=== PATIENT | female | born 1990 | race Caucasian/White ===

== ENCOUNTER 2016-09-11 03:13 | Inpatient (IN) | payer BC ==
--- NOTE | ~2016-09-11 | IDS ---
Interim Discharge Summary [facility] [address] [place]. [address] NAME: ANDIE SOTOMAYOR : 88 STATUS : ADM IN [facility]#: [id number] AGE: 26 ADM/REG DATE : 09/11/16 MR#: [id number] REPORT SERV DATE: 09/16/16 DICTATED BY: CLAUDIA MOREL DATE: 09/15/16 REPORT STATUS : Draft TRANSCRIBED BY: MODSanta DATE: 09/15/16 ADMISSION DATE: 09/11/2016 DISCHARGE DATE: DIAGNOSES: 1. Right hip cellulitis/abscess, status post I and D on 09/13/2016. 2. Right forearm cellulitis. 3. Hypoxia secondary to atelectasis and volume overload. 4. Urinary tract infection. 5. Hypertension. HOSPITAL COURSE: The patient was admitted for management of right hip cellulitis. Initially, she was placed on vancomycin and Rocephin. Clinical status does not improve with that regimen. Rocephin eventually changed to Zosyn. MRI was done for further evaluation. An abscess was noticed. General Surgery was consulted. The patient had I and D on 09/13/2016. Follow up cultures for the escalation of antibiotics. Consider consulting ID if needed. The patient developed some hypoxia. CTA of the chest was done to rule out PE. CTA did not show any evidence of PE on evaluation. Showed atelectasis and pulmonary vascular congestion. IV fluids were discontinued. The patient was given Lasix cautiously because of soft blood pressure and started on incentive spirometry. We have continued to hold hydrochlorothiazide due to soft BP. Further management per clinical course. MOUNIKA/ALONZO Chong Boyd MD / [id number] CC: MD Henry Babcock III, M.D.
--- NOTE | ~2016-09-11 | DS ---
Discharge Summary [facility] [address] [facility] [place]. [address] NAME: ANDIE TERRY : 88 STATUS : DIS IN PAT#: [id number] AGE: 26 ADM/REG DATE : 09/11/16 MR#: [id number] REPORT SERV DATE: 09/21/16 DICTATED BY: SHABANA CHATTERJEE DATE: 09/21/16 REPORT STATUS : Draft TRANSCRIBED BY: MODSanta DATE: 09/21/16 ADMISSION DATE: 09/11/2016 DISCHARGE DATE: 09/20/2016 The patient was admitted to the Hospitalist Service. CONSULTANTS: Dr. Ayaz Estrada. Dr. Feliberto Jaramillo, General Surgery. DISCHARGE DIAGNOSES: 1. Right hip abscess. 2. Right arm cellulitis. 3. Acute kidney injury. 4. Urinary tract infection. 5. Cutaneous jude. 6. Depression. 7. Chronic kidney stones. This discharge diagnosis covers dates 09/16/2016 through 09/20/2016. For complete history and hospital course up to 09/16/2016, please see Dr. Boyd' interim discharge summary. HISTORY OF PRESENT ILLNESS: I initially saw Ms. Terry on 09/16/2016 for the first time. She complained of right forearm pain and swelling as well as right hip pain, not controlled currently with her p.r.n. hydrocodone dose. She denied any chest pain or shortness of breath. She reported intermittent tend to nausea, none when I evaluated her as she was eating breakfast. Her vital signs were stable, and she was in no acute distress. I noticed some cutaneous jude in the folds of her groin and upper thighs, as well as her abdominal folds. Nystatin powder was ordered. I also increased her Percocet to 7.5/325 mg dose. In addition, venous duplex of the right arm was ordered to rule out DVT. Venous duplex was done on the same day, and this revealed a superficial venous thrombosis of the right basilic vein. Warm compresses and elevation of the right arm were ordered. Later in the day on the , her culture of her right hip abscess came back showing MSSA. Therefore, her vancomycin and Zosyn were discontinued by Dr. Kothari, and she was placed on Ancef 1 g IV daily 8. On the following day, pharmacy per PNP protocol changed to Ancef to 2 g IV q.8 hours. On the , Ms. Terry had a slight bump in her white count to 13.6. On the , she had increased erythema in her right forearm and hand, this was worsening, her Ancef was changed back to IV vancomycin. Her HCTZ was resumed for her chronic kidney stones. Her cutaneous jude was improving with the nystatin topical. In addition, her right hip pain was improved and the wound was without any drainage. On 09/19/2016, Ms. Terry was feeling better. Her right arm erythema and edema had decreased with changing back to the vancomycin IV. She did state that she was passing tiny kidney stones on this date as well as the evening before. However, her white count was slowly creeping up to 15.5. I did speak with Dr. Estrada on this date, and he recommended Zyvox 600 mg p.o. b.i.d. for five days at discharge. On 09/20/2016, Ms. Terry continued to improve. The nursing staff instructed her on her wound care with dressing changes to the right hip wound. Her white count had increased slightly from the day before to 15.7 from 15.3, however, she was Discharge Summary [address] [address] NAME: ANDIE TERRY : 88 STATUS : DIS IN [facility]#: [id number] AGE: 26 ADM/REG DATE : 09/11/16 MR#: [id number] REPORT SERV DATE: 09/21/16 DICTATED BY: SHABANA CHATTERJEE DATE: 09/21/16 REPORT STATUS : Draft TRANSCRIBED BY: ALONZO DATE: 09/21/16 afebrile and overall continuing to improve. She was very adamant about being discharged secondary to issues with early childhood associate for her 2-year-old and 6-year-old. I did have Ms. Terry immobilize her right wrist and hand in Velcro splint. Her vital signs were stable. Her pain was managed with her oral pain medicine. She had received treatment for her urinary tract infection that was present on admission. She had no more urinary tract symptoms other than passing of tiny kidney stones which she does very frequently. Therefore, it was felt that we had completed necessary inpatient treatment for Ms. Terry and she could be discharged home safely on continued oral antibiotic and wound care with close followup schedule. So, on the evening of 09/20/2016, she was discharged home in stable condition. DISCHARGE INSTRUCTIONS: Include: 1. Diet: As tolerated. 2. Activity: As tolerated with the right hand splint x1 week. She will be followed by [facility] nurses for dressing changes every other day to the right hip wound with Aquacel Ag packing covered with Mepilex foam. DISCHARGE MEDICATIONS: As follows: 1. Gabapentin 100 mg t.i.d. 2. Requip 0.5 mg p.o. at bedtime. 3. Phenergan 12.5 mg p.o. q.4 hours p.r.n. nausea, #20, prescription given. 4. Percocet 7.5/325 p.o. q.4-6 hours p.r.n., #20, prescription given. 5. Zyvox 600 mg p.o. b.i.d. for five days, prescription given. Ms. Terry did receive her first dose of Zyvox 600 mg p.o. in the hospital prior to discharge. She is instructed to hold her Zoloft while taking the Zyvox prescription. OTHER DISCHARGE INSTRUCTIONS: Include, she will have followup lab work drawn on Friday at [facility] outpatient lab, CBC, BMP, and Mag level. [facility]. Also, she is scheduled to follow up with [facility], on 10/07/2016 as a new patient. BRENT/ALONZO Jainya Chatterjee [facility] / [id number] CC: Myra Ayers III, M.D. Kenneth A Bell, D.O.
--- NOTE | ~2016-09-11 | OP ---
Record Of Operation [facility] [address] [place]. [address] NAME: ANDIE SOTOMAYOR : 88 STATUS : ADM IN [facility]#: [id number] AGE: 26 ADM/REG DATE : 09/11/16 MR#: [id number] REPORT SERV DATE: 09/13/16 DICTATED BY: JOHN GILBERT JR. DATE: 09/13/16 REPORT STATUS : Draft TRANSCRIBED BY: ALONZO DATE: 09/13/16 DATE OF PROCEDURE: 09/13/2016 SURGEON: John Gilbert M.D. PROCEDURE: Incision and drainage of right hip abscess. PREOPERATIVE DIAGNOSIS: Right hip abscess. POSTOPERATIVE DIAGNOSIS: Right hip abscess. ANESTHESIA: Local. INDICATIONS: The patient presented with cellulitis and abscess of the right hip. Incision and drainage is indicated. DESCRIPTION OF PROCEDURE: The area was prepped with Hibiclens. It was infiltrated with 1% lidocaine. With 11 blade, and incision was made overlying the area of fluctuance, entered the cavity, it was entered deeply and towards the medial aspect. The depth was 3 cm and 6 cm tracking medially. It was irrigated thoroughly with saline. Cultures were taken prior and was packed with Aquacel Ag, covered with foam and pressure dressing. She tolerated relatively well. ESTIMATED BLOOD LOSS: 10 mL. FERDINAND/ALONZO John Gilbert Jr., M.D. / [id number] CC: MD Henry Babcock III, M.D.
[~2016-09-11 03:13] MED LIST: ADVIL PO; BACTRIM DS1 TAB PO; BEN25 PO; CIP5 PO; DETROLLA4 PO; HYDROCHLOROT50 MG PO; LORTAB 5 PO; NAP500 PO; NEUR100 PO; PR12.5 PO; PR25 PO; PYR200 PO; REQUIP5 PO; SPRINTEC 2828 DAY PO; ULTRAM50 PO; ZOL100 PO; ZOL50 PO; [UNRECOGNIZED DRUG - OTHER] PO
[2016-09-11 05:39] LABS: BASOPHILS 0.3 %; BASOPHILS ABSOLUTE 0.03 10/3/uL (0.0-0.16); EOSINOPHILS 1.7 %; EOSINOPHILS ABSOLUTE 0.19 10/3/uL (0.0-0.53); HEMATOCRIT 37.7 % (36.0-48.0); HEMOGLOBIN 12.6 g/dL (12.0-16.0); IMMATURE GRANULOCYTES 0.5 %; IMMATURE GRANULOCYTES ABSOLUTE 0.06 10/3/uL (0.0-0.11); LYMPHOCYTES 19.6 %; LYMPHOCYTES ABSOLUTE 2.16 10/3/uL (0.67-4.30); MEAN CORPUS HGB CONC 33.4 g/dL (32.0-36.0); MEAN CORPUSCULAR HEMOGLOB 29.9 pg (26.0-34.0); MEAN CORPUSCULAR VOLUME 89.5 fL (80-100); MEAN PLATELET VOLUME 9.4 fL (9.2-13.0); MONOCYTES 7.7 %; MONOCYTES ABSOLUTE 0.85 10/3/uL (0.21-1.20); NEUTROPHILS 70.2 %; NEUTROPHILS ABSOLUTE 7.74 10/3/uL (2.02-8.40); PLATELET COUNT 301 10/3/uL (150-400); RBC DISTRIBUTION WIDTH 13.5 % (12.0-16.0); RED CELL COUNT 4.21 10/6/uL (4.0-5.6)
[2016-09-11 05:41] LABS: MANUAL DIFF NO %
[2016-09-11 05:56] LABS: BUN (BLOOD UREA NITROGEN) 8 MG/DL (6-23); CALCIUM, SERUM 8.5 MG/DL (8.5-10.4); CHLORIDE, SERUM 104 MMOL/L (96-112); CO2 (CARBON DIOXIDE) 24 MMOL/L (24-34); CREATININE 0.79 MG/DL (0.55-1.02); GFR AFRICAN AMERICAN 119 ML/MIN (>=60); GFR NON AFRICAN AMERICAN 103 ML/MIN (>=60); SODIUM, SERUM 139 MMOL/L (135-148)
[2016-09-11 05:57] LABS: GLUCOSE, SERUM 105 MG/DL (60-99); POTASSIUM, SERUM 2.9 MMOL/L (3.5-5.3)
[2016-09-12 04:41] LABS: BASOPHILS 0.2 %; BASOPHILS ABSOLUTE 0.02 10/3/uL (0.0-0.16); EOSINOPHILS 0.3 %; EOSINOPHILS ABSOLUTE 0.04 10/3/uL (0.0-0.53); HEMATOCRIT 37.9 % (36.0-48.0); HEMOGLOBIN 12.8 g/dL (12.0-16.0); IMMATURE GRANULOCYTES 0.6 %; IMMATURE GRANULOCYTES ABSOLUTE 0.07 10/3/uL (0.0-0.11); LYMPHOCYTES 14.4 %; LYMPHOCYTES ABSOLUTE 1.73 10/3/uL (0.67-4.30); MANUAL DIFF NO %; MEAN CORPUS HGB CONC 33.8 g/dL (32.0-36.0); MEAN CORPUSCULAR HEMOGLOB 30.3 pg (26.0-34.0); MEAN CORPUSCULAR VOLUME 89.6 fL (80-100); MEAN PLATELET VOLUME 9.5 fL (9.2-13.0); MONOCYTES 9.3 %; MONOCYTES ABSOLUTE 1.12 10/3/uL (0.21-1.20); NEUTROPHILS 75.2 %; NEUTROPHILS ABSOLUTE 9.06 10/3/uL (2.02-8.40); PLATELET COUNT 250 10/3/uL (150-400); RBC DISTRIBUTION WIDTH 13.4 % (12.0-16.0); RED CELL COUNT 4.23 10/6/uL (4.0-5.6)
[2016-09-12 04:54] LABS: BUN (BLOOD UREA NITROGEN) 6 MG/DL (6-23); CALCIUM, SERUM 8.4 MG/DL (8.5-10.4); CHLORIDE, SERUM 104 MMOL/L (96-112); CO2 (CARBON DIOXIDE) 23 MMOL/L (24-34); CREATININE 0.71 MG/DL (0.55-1.02); GFR AFRICAN AMERICAN 135 ML/MIN (>=60); GFR NON AFRICAN AMERICAN 117 ML/MIN (>=60); GLUCOSE, SERUM 112 MG/DL (60-99); POTASSIUM, SERUM 3.1 MMOL/L (3.5-5.3); SODIUM, SERUM 138 MMOL/L (135-148)
[2016-09-13 05:52] LABS: BUN (BLOOD UREA NITROGEN) 5 MG/DL (6-23); CALCIUM, SERUM 8.7 MG/DL (8.5-10.4); CHLORIDE, SERUM 104 MMOL/L (96-112); CO2 (CARBON DIOXIDE) 24 MMOL/L (24-34); CREATININE 0.58 MG/DL (0.55-1.02); GFR AFRICAN AMERICAN 146 ML/MIN (>=60); GFR NON AFRICAN AMERICAN 126 ML/MIN (>=60); GLUCOSE, SERUM 120 MG/DL (60-99); POTASSIUM, SERUM 3.6 MMOL/L (3.5-5.3); SODIUM, SERUM 139 MMOL/L (135-148)
[2016-09-13 06:05] LABS: BASOPHILS 0.2 %; BASOPHILS ABSOLUTE 0.03 10/3/uL (0.0-0.16); EOSINOPHILS 1.4 %; EOSINOPHILS ABSOLUTE 0.23 10/3/uL (0.0-0.53); HEMATOCRIT 36.5 % (36.0-48.0); HEMOGLOBIN 12.3 g/dL (12.0-16.0); IMMATURE GRANULOCYTES 0.4 %; IMMATURE GRANULOCYTES ABSOLUTE 0.07 10/3/uL (0.0-0.11); LYMPHOCYTES 15.3 %; LYMPHOCYTES ABSOLUTE 2.44 10/3/uL (0.67-4.30); MEAN CORPUS HGB CONC 33.7 g/dL (32.0-36.0); MEAN CORPUSCULAR HEMOGLOB 29.7 pg (26.0-34.0); MEAN CORPUSCULAR VOLUME 88.2 fL (80-100); MEAN PLATELET VOLUME 9.5 fL (9.2-13.0); MONOCYTES 10.2 %; MONOCYTES ABSOLUTE 1.63 10/3/uL (0.21-1.20); NEUTROPHILS 72.5 %; NEUTROPHILS ABSOLUTE 11.55 10/3/uL (2.02-8.40); PLATELET COUNT 229 10/3/uL (150-400); RBC DISTRIBUTION WIDTH 13.4 % (12.0-16.0); RED CELL COUNT 4.14 10/6/uL (4.0-5.6)
[2016-09-13 06:14] LABS: MANUAL DIFF NO %
[2016-09-14 05:45] LABS: BUN (BLOOD UREA NITROGEN) 7 MG/DL (6-23); CALCIUM, SERUM 8.4 MG/DL (8.5-10.4); CHLORIDE, SERUM 110 MMOL/L (96-112); CO2 (CARBON DIOXIDE) 23 MMOL/L (24-34); CREATININE 0.85 MG/DL (0.55-1.02); GFR AFRICAN AMERICAN 109 ML/MIN (>=60); GFR NON AFRICAN AMERICAN 94 ML/MIN (>=60); GLUCOSE, SERUM 136 MG/DL (60-99); POTASSIUM, SERUM 3.7 MMOL/L (3.5-5.3); SODIUM, SERUM 140 MMOL/L (135-148)
[2016-09-14 06:06] LABS: BASOPHILS 0.4 %; BASOPHILS ABSOLUTE 0.05 10/3/uL (0.0-0.16); EOSINOPHILS 3.6 %; EOSINOPHILS ABSOLUTE 0.47 10/3/uL (0.0-0.53); HEMATOCRIT 35.1 % (36.0-48.0); HEMOGLOBIN 11.7 g/dL (12.0-16.0); IMMATURE GRANULOCYTES 0.8 %; LYMPHOCYTES 20.5 %; LYMPHOCYTES ABSOLUTE 2.71 10/3/uL (0.67-4.30); MANUAL DIFF NO %; MEAN CORPUS HGB CONC 33.3 g/dL (32.0-36.0); MEAN CORPUSCULAR HEMOGLOB 29.7 pg (26.0-34.0); MEAN CORPUSCULAR VOLUME 89.1 fL (80-100); MEAN PLATELET VOLUME 10.1 fL (9.2-13.0); MONOCYTES 7.4 %; MONOCYTES ABSOLUTE 0.98 10/3/uL (0.21-1.20); NEUTROPHILS 67.3 %; PLATELET COUNT 218 10/3/uL (150-400); RBC DISTRIBUTION WIDTH 13.5 % (12.0-16.0); RED CELL COUNT 3.94 10/6/uL (4.0-5.6); WHITE BLOOD CELLS 13.2 10/3/uL (4.5-10.5)
[2016-09-15 12:55] LABS: BASOPHILS 0.5 %; BASOPHILS ABSOLUTE 0.05 10/3/uL (0.0-0.16); EOSINOPHILS 4.8 %; EOSINOPHILS ABSOLUTE 0.47 10/3/uL (0.0-0.53); HEMATOCRIT 34.2 % (36.0-48.0); HEMOGLOBIN 11.3 g/dL (12.0-16.0); IMMATURE GRANULOCYTES 1.6 %; IMMATURE GRANULOCYTES ABSOLUTE 0.16 10/3/uL (0.0-0.11); LYMPHOCYTES 35.9 %; LYMPHOCYTES ABSOLUTE 3.49 10/3/uL (0.67-4.30); MEAN CORPUSCULAR HEMOGLOB 30.1 pg (26.0-34.0); MEAN PLATELET VOLUME 9.6 fL (9.2-13.0); MONOCYTES 9.9 %; MONOCYTES ABSOLUTE 0.96 10/3/uL (0.21-1.20); NEUTROPHILS 47.3 %; NEUTROPHILS ABSOLUTE 4.58 10/3/uL (2.02-8.40); PLATELET COUNT 234 10/3/uL (150-400); RBC DISTRIBUTION WIDTH 13.9 % (12.0-16.0); RED CELL COUNT 3.76 10/6/uL (4.0-5.6); WHITE BLOOD CELLS 9.7 10/3/uL (4.5-10.5)
[2016-09-15 12:56] LABS: MANUAL DIFF NO %
[2016-09-15 13:08] LABS: BUN (BLOOD UREA NITROGEN) 10 MG/DL (6-23); CALCIUM, SERUM 7.9 MG/DL (8.5-10.4); CHLORIDE, SERUM 110 MMOL/L (96-112); CO2 (CARBON DIOXIDE) 26 MMOL/L (24-34); CREATININE 0.82 MG/DL (0.55-1.02); GFR AFRICAN AMERICAN 114 ML/MIN (>=60); GFR NON AFRICAN AMERICAN 98 ML/MIN (>=60); SODIUM, SERUM 144 MMOL/L (135-148)
[2016-09-15 13:09] LABS: GLUCOSE, SERUM 84 MG/DL (60-99)
[2016-09-16 10:34] LABS: BASOPHILS 0.6 %; BASOPHILS ABSOLUTE 0.06 10/3/uL (0.0-0.16); EOSINOPHILS 3.6 %; EOSINOPHILS ABSOLUTE 0.38 10/3/uL (0.0-0.53); HEMATOCRIT 36.2 % (36.0-48.0); HEMOGLOBIN 11.5 g/dL (12.0-16.0); IMMATURE GRANULOCYTES 0.6 %; IMMATURE GRANULOCYTES ABSOLUTE 0.06 10/3/uL (0.0-0.11); LYMPHOCYTES 30.8 %; MEAN CORPUS HGB CONC 31.8 g/dL (32.0-36.0); MEAN CORPUSCULAR HEMOGLOB 28.7 pg (26.0-34.0); MEAN CORPUSCULAR VOLUME 90.3 fL (80-100); MEAN PLATELET VOLUME 9.5 fL (9.2-13.0); MONOCYTES 5.7 %; MONOCYTES ABSOLUTE 0.61 10/3/uL (0.21-1.20); NEUTROPHILS 58.7 %; NEUTROPHILS ABSOLUTE 6.29 10/3/uL (2.02-8.40); PLATELET COUNT 267 10/3/uL (150-400); RBC DISTRIBUTION WIDTH 13.9 % (12.0-16.0); RED CELL COUNT 4.01 10/6/uL (4.0-5.6); WHITE BLOOD CELLS 10.7 10/3/uL (4.5-10.5)
[2016-09-16 10:39] LABS: MANUAL DIFF NO %
[2016-09-16 11:20] LABS: BUN (BLOOD UREA NITROGEN) 8 MG/DL (6-23); CALCIUM, SERUM 8.8 MG/DL (8.5-10.4); CHLORIDE, SERUM 111 MMOL/L (96-112); CO2 (CARBON DIOXIDE) 24 MMOL/L (24-34); CREATININE 0.89 MG/DL (0.55-1.02); GFR AFRICAN AMERICAN 103 ML/MIN (>=60); GFR NON AFRICAN AMERICAN 89 ML/MIN (>=60); GLUCOSE, SERUM 78 MG/DL (60-99); POTASSIUM, SERUM 4.2 MMOL/L (3.5-5.3); SODIUM, SERUM 144 MMOL/L (135-148); VANCOMYCIN TROUGH 25.2 MCG/ML (10.0-20.0)
[2016-09-17 05:15] LABS: BASOPHILS 0.4 %; BASOPHILS ABSOLUTE 0.05 10/3/uL (0.0-0.16); EOSINOPHILS 5.1 %; EOSINOPHILS ABSOLUTE 0.69 10/3/uL (0.0-0.53); HEMATOCRIT 37.4 % (36.0-48.0); HEMOGLOBIN 12.5 g/dL (12.0-16.0); IMMATURE GRANULOCYTES 1.7 %; IMMATURE GRANULOCYTES ABSOLUTE 0.23 10/3/uL (0.0-0.11); LYMPHOCYTES 17.3 %; LYMPHOCYTES ABSOLUTE 2.35 10/3/uL (0.67-4.30); MEAN CORPUSCULAR HEMOGLOB 29.9 pg (26.0-34.0); MEAN CORPUSCULAR VOLUME 89.5 fL (80-100); MEAN PLATELET VOLUME 9.6 fL (9.2-13.0); MONOCYTES 4.1 %; MONOCYTES ABSOLUTE 0.55 10/3/uL (0.21-1.20); NEUTROPHILS 71.4 %; NEUTROPHILS ABSOLUTE 9.69 10/3/uL (2.02-8.40); PLATELET COUNT 282 10/3/uL (150-400); RBC DISTRIBUTION WIDTH 13.7 % (12.0-16.0); RED CELL COUNT 4.18 10/6/uL (4.0-5.6); WHITE BLOOD CELLS 13.6 10/3/uL (4.5-10.5)
[2016-09-17 05:16] LABS: MANUAL DIFF NO %; MEAN CORPUS HGB CONC 33.4 g/dL (32.0-36.0)
[2016-09-17 05:27] LABS: BUN (BLOOD UREA NITROGEN) 6 MG/DL (6-23); CALCIUM, SERUM 8.9 MG/DL (8.5-10.4); CHLORIDE, SERUM 108 MMOL/L (96-112); CO2 (CARBON DIOXIDE) 22 MMOL/L (24-34); CREATININE 0.93 MG/DL (0.55-1.02); GFR AFRICAN AMERICAN 98 ML/MIN (>=60); GFR NON AFRICAN AMERICAN 84 ML/MIN (>=60); POTASSIUM, SERUM 3.9 MMOL/L (3.5-5.3); SODIUM, SERUM 142 MMOL/L (135-148)
[2016-09-17 05:29] LABS: GLUCOSE, SERUM 134 MG/DL (60-99)
[2016-09-18 08:01] LABS: BASOPHILS 0.2 %; BASOPHILS ABSOLUTE 0.03 10/3/uL (0.0-0.16); EOSINOPHILS 4.1 %; EOSINOPHILS ABSOLUTE 0.63 10/3/uL (0.0-0.53); HEMATOCRIT 38.6 % (36.0-48.0); HEMOGLOBIN 12.8 g/dL (12.0-16.0); IMMATURE GRANULOCYTES 1.9 %; IMMATURE GRANULOCYTES ABSOLUTE 0.29 10/3/uL (0.0-0.11); LYMPHOCYTES 22.4 %; LYMPHOCYTES ABSOLUTE 3.48 10/3/uL (0.67-4.30); MEAN CORPUS HGB CONC 33.2 g/dL (32.0-36.0); MEAN CORPUSCULAR HEMOGLOB 29.5 pg (26.0-34.0); MEAN CORPUSCULAR VOLUME 88.9 fL (80-100); MEAN PLATELET VOLUME 9.7 fL (9.2-13.0); MONOCYTES 6.1 %; MONOCYTES ABSOLUTE 0.94 10/3/uL (0.21-1.20); NEUTROPHILS 65.3 %; NEUTROPHILS ABSOLUTE 10.14 10/3/uL (2.02-8.40); PLATELET COUNT 304 10/3/uL (150-400); RED CELL COUNT 4.34 10/6/uL (4.0-5.6); WHITE BLOOD CELLS 15.5 10/3/uL (4.5-10.5)
[2016-09-18 08:03] LABS: MANUAL DIFF NO %
[2016-09-18 08:18] LABS: BUN (BLOOD UREA NITROGEN) 8 MG/DL (6-23); CALCIUM, SERUM 8.9 MG/DL (8.5-10.4); CHLORIDE, SERUM 109 MMOL/L (96-112); CO2 (CARBON DIOXIDE) 20 MMOL/L (24-34); CREATININE 0.91 MG/DL (0.55-1.02); GFR AFRICAN AMERICAN 100 ML/MIN (>=60); GFR NON AFRICAN AMERICAN 86 ML/MIN (>=60); GLUCOSE, SERUM 128 MG/DL (60-99); POTASSIUM, SERUM 4.4 MMOL/L (3.5-5.3); SODIUM, SERUM 142 MMOL/L (135-148)
[2016-09-19 07:22] LABS: HEMATOCRIT 41.7 % (36.0-48.0); HEMOGLOBIN 13.8 g/dL (12.0-16.0); MEAN CORPUS HGB CONC 33.1 g/dL (32.0-36.0); MEAN CORPUSCULAR HEMOGLOB 29.6 pg (26.0-34.0); MEAN CORPUSCULAR VOLUME 89.3 fL (80-100); MEAN PLATELET VOLUME 9.7 fL (9.2-13.0); PLATELET COUNT 327 10/3/uL (150-400); RBC DISTRIBUTION WIDTH 14.3 % (12.0-16.0); RED CELL COUNT 4.67 10/6/uL (4.0-5.6); WHITE BLOOD CELLS 15.3 10/3/uL (4.5-10.5)
[2016-09-19 07:23] LABS: MANUAL DIFF YES %
[2016-09-19 07:49] LABS: CALCIUM, SERUM 9.5 MG/DL (8.5-10.4); CHLORIDE, SERUM 110 MMOL/L (96-112); CO2 (CARBON DIOXIDE) 16 MMOL/L (24-34); CREATININE 1.11 MG/DL (0.55-1.02); GFR AFRICAN AMERICAN 79 ML/MIN (>=60); GFR NON AFRICAN AMERICAN 68 ML/MIN (>=60); SODIUM, SERUM 141 MMOL/L (135-148)
[2016-09-19 08:04] LABS: BUN (BLOOD UREA NITROGEN) 14 MG/DL (6-23); GLUCOSE, SERUM 93 MG/DL (60-99); POTASSIUM, SERUM 4.8 MMOL/L (3.5-5.3)
[2016-09-19 08:10] LABS: BAND NEUTROPHILS 4 %; LYMPHOCYTES 21 %; LYMPHOCYTES ABSOLUTE (CALC) 3.21 10/3/uL (0.67-4.30); MONOCYTES 6 %; MONOCYTES ABSOLUTE (CALC) 0.92 10/3/uL (0.21-1.20); NEUTROPHILS ABSOLUTE (CALC) 11.17 10/3/uL (2.02-8.40); PLATELET ESTIMATE ADQ (ADEQUATE); RBC MORPHOLOGY NORM (NORMAL); SEGMENTED NEUTROPHIL (0) 69 %; TOTAL NUCLEATED CELLS 100
[2016-09-19 10:16] LABS: PROCALCITONIN 0.26 ng/mL (<0.5)
[2016-09-20 07:45] LABS: BUN (BLOOD UREA NITROGEN) 18 MG/DL (6-23); CALCIUM, SERUM 9.6 MG/DL (8.5-10.4); CHLORIDE, SERUM 107 MMOL/L (96-112); CO2 (CARBON DIOXIDE) 19 MMOL/L (24-34); CREATININE 1.16 MG/DL (0.55-1.02); GFR AFRICAN AMERICAN 75 ML/MIN (>=60); GFR NON AFRICAN AMERICAN 64 ML/MIN (>=60); GLUCOSE, SERUM 90 MG/DL (60-99); POTASSIUM, SERUM 4.8 MMOL/L (3.5-5.3); SODIUM, SERUM 139 MMOL/L (135-148)
[2016-09-20 10:21] LABS: BASOPHILS 0.3 %; BASOPHILS ABSOLUTE 0.05 10/3/uL (0.0-0.16); EOSINOPHILS 3.1 %; EOSINOPHILS ABSOLUTE 0.48 10/3/uL (0.0-0.53); IMMATURE GRANULOCYTES 1.8 %; IMMATURE GRANULOCYTES ABSOLUTE 0.29 10/3/uL (0.0-0.11); LYMPHOCYTES 21.9 %; LYMPHOCYTES ABSOLUTE 3.44 10/3/uL (0.67-4.30); MEAN CORPUS HGB CONC 33.3 g/dL (32.0-36.0); MEAN CORPUSCULAR HEMOGLOB 29.8 pg (26.0-34.0); MEAN CORPUSCULAR VOLUME 89.4 fL (80-100); MEAN PLATELET VOLUME 9.4 fL (9.2-13.0); MONOCYTES 8.2 %; MONOCYTES ABSOLUTE 1.29 10/3/uL (0.21-1.20); NEUTROPHILS 64.7 %; NEUTROPHILS ABSOLUTE 10.15 10/3/uL (2.02-8.40); PLATELET COUNT 389 10/3/uL (150-400); RBC DISTRIBUTION WIDTH 14.5 % (12.0-16.0); RED CELL COUNT 4.36 10/6/uL (4.0-5.6); WHITE BLOOD CELLS 15.7 10/3/uL (4.5-10.5)
[2016-09-20 10:22] LABS: MANUAL DIFF NO %
[2016-09-20] MEDS ORDERED: ZYVOXPO PO (17:52)
[2016-10-02] MEDS ORDERED: ZOL100 PO (21:15)
[2016-10-02] MEDS ORDERED: XARELTO STARTER PACK (21:15)
[2016-10-02] MEDS ORDERED: REQUIP5 PO (21:16)
[2016-10-02] MEDS ORDERED: NEUR100 PO (21:16)
[2016-10-02] MEDS ORDERED: PR12.5 PO (21:16)
[2016-10-02] MEDS ORDERED: DURICEF PO (21:18)
[2016-10-02] MEDS ORDERED: PERCOCET 7.5/321 TAB PO (21:19)
[2016-10-02] MEDS ORDERED: BEN25 PO (21:19)
[2016-10-02] MEDS ORDERED: NYSTATPOW TOP (21:19)
[2016-10-05] MEDS ORDERED: PERCOCET 10/3251 TAB (09:39)
== END 2016-09-20 18:58 | disposition home or self-care (01) | DRG 602 ==
LOC: CDU1 03:13 → CDU2 03:16 → 4SO 09-14 08:01
PROVIDERS: Internal Medicine; Nurse Practitioner
PROC: 0H9HXZZ Drainage of Right Upper Leg Skin, External Approach (ICD-10-PCS; principal; 2016-09-13)
DX: L02.415 Cutaneous abscess of right lower limb (principal); J96.01 Acute respiratory failure with hypoxia; B37.89 Other sites of candidiasis; I82.611 Acute embolism and thrombosis of superficial veins of right upper extremity; L03.113 Cellulitis of right upper limb; N39.0 Urinary tract infection, site not specified; J98.11 Atelectasis; E87.70 Fluid overload, unspecified; L03.115 Cellulitis of right lower limb; R11.2 Nausea with vomiting, unspecified; B95.61 Methicillin susceptible Staphylococcus aureus infection as the cause of diseases classified elsewhere; N20.0 Calculus of kidney; F32.9 Major depressive disorder, single episode, unspecified; E87.6 Hypokalemia; E83.42 Hypomagnesemia; B96.4 Proteus (mirabilis) (morganii) as the cause of diseases classified elsewhere
CPT/HCPCS: 71275; 73722-RT; 80048; 80202; 82962; 83735; 84132; 84145; 85025; 87015; 87070; 87075; 87077; 87102; 87116; 87186; 87205; 87206; 93971; A9270-GY; A9577; J0690; J1170; J2543; J2550; J3370

== ENCOUNTER 2016-09-23 23:50 | Inpatient (IN) | payer BC ==
--- NOTE | ~2016-09-23 | HP ---
History And Physical [facility] [address] [facility] [place]. [address] NAME: ANDIE TERRY : 88 STATUS : ADM IN [facility]#: [id number] AGE: 26 ADM/REG DATE : 09/24/16 MR#: [id number] REPORT SERV DATE: 09/24/16 DICTATED BY: JOHNATHAN MESA DATE: 09/24/16 REPORT STATUS : Draft TRANSCRIBED BY: MODSanta DATE: 09/24/16 DATE OF ADMISSION: 09/23/2016 POINT OF ENTRY: [facility] Emergency Department. PRIMARY CARE PHYSICIAN: [facility]. CHIEF COMPLAINT: Left arm pain, redness, and swelling. HISTORY OF PRESENT ILLNESS: Ms. Terry is a 26-year-old female with a history of nephrolithiasis, hepatic steatosis, and morbid obesity, who recently had a prolonged hospitalization at [facility] from September 11 through September 20 for right upper extremity cellulitis as well as right hip abscess that grew MSSA. The patient was eventually discharged on the of this month on a course of Zyvox oral antibiotic therapy. The patient reports compliance with her Zyvox antibiotic therapy; however, on Friday, the day after discharge, she started to notice some left forearm redness and swelling, which over the weekend progressively worsened despite compliance with antibiotic therapy. She does report some low-grade fevers approximately 99.7-100.0 degrees Fahrenheit as well. She also states that she started to develop some yeast infection type symptoms in her bilateral inguinal folds. Home Health has seen the patient and given worsening left arm appearance, recommended she present to the emergency department for further evaluation and management. Initial evaluation in the emergency department for examination and concern for left arm cellulitis that she started on IV vancomycin. Labs were not performed here in the ER as she just had outpatient home health labs done earlier in the day, which showed a white count of 15,500 and worsening thrombocytosis of 508. REVIEW OF SYSTEMS: Comprehensive review of systems otherwise negative unless listed in history of present illness. PAST MEDICAL HISTORY: 1. History of recent MSSA cellulitis and right hip abscess, status post incision and drainage. 2. Hepatic steatosis. 3. Nephrolithiasis. 4. Recurrent urinary tract infections. 5. Superficial right upper extremity venous thrombosis. 6. Morbid obesity. PAST SURGICAL HISTORY: 1. Right hip I and D. 2. Cholecystectomy. 3. . History And Physical [address] [place]. [address] NAME: ANDIE TERRY : 88 STATUS : ADM IN PAT#: [id number] AGE: 26 ADM/REG DATE : 09/24/16 MR#: [id number] REPORT SERV DATE: 09/24/16 DICTATED BY: JOHNATHAN MESA DATE: 09/24/16 REPORT STATUS : Draft TRANSCRIBED BY: ALONZO DATE: 09/24/16 ALLERGIES: ZOFRAN AND LATEX. HOME MEDICATIONS: 1. Gabapentin 100 mg t.i.d. 2. Linezolid 600 mg b.i.d. 3. Percocet 7.5/350 one tablet every four hours p.r.n. 4. Phenergan 12.5 mg every four hours p.r.n. 5. Requip 0.5 mg at bedtime. 6. Zoloft 150 mg at bedtime. SOCIAL HISTORY: Denies any tobacco, alcohol, or illicits. FAMILY MEDICAL HISTORY: Mother with history of heart murmur. Father with coronary artery disease. LABS AND IMAGIN. These are labs from earlier in the day from home health: White count 15.5, hemoglobin 11.9, hematocrit 37.5, and platelet count 508. 2. Sodium is 141, potassium 4.0, chloride 104, carbon dioxide 26, BUN 12, creatinine 0.87, glucose is 53, calcium is 9.5, magnesium is 2.2. 3. Urinalysis, lactic acid, and blood cultures are pending at the time of dictation. PHYSICAL EXAMINATION: VITAL SIGNS: Temperature is 98.9 degrees Fahrenheit, pulse is 99, respirations 20, satting 98% on room air, blood pressure is 120/69. GENERAL: The patient is awake, alert, in no distress resting comfortably. She is a well- developed, well-nourished, morbidly obese female. is at bedside. HEENT: Atraumatic and normocephalic. Moist mucous membranes. Pupils equal, round, reactive to light and accommodation. Extraocular eye movements are intact. No scleral icterus. NECK: No jugular venous distention. No carotid bruits. CARDIAC: Regular rate and rhythm. No murmurs, rubs, or gallops. Normal S1, S2. LUNGS: Clear to auscultation bilaterally. No wheezes, rhonchi, or crackles. ABDOMEN: Obese, soft, nontender, nondistended. Good bowel sounds. No rebound, guarding, or rigidity. EXTREMITIES: Warm and perfused with no cyanosis, clubbing, or edema. SKIN: The patient has a diffuse left upper extremity area of erythema, warmth, tenderness, and some mild swelling consistent with cellulitis. There are some areas of firmness and tenderness, but no palpable fluid collections or fluctuance. The patient also has some evidence of some inguinal candidal yeast infection, right greater than left inguinal folds. Right dorsal hand surface does show some very mild erythema, but no palpable fluid collection or fluctuance. PSYCHIATRIC: Affect appropriate. NEUROLOGIC: Alert and oriented x3. Cranial nerves II through XII grossly intact. Speech is normal. Gait not assessed. ASSESSMENT AND PLAN: Ms. Terry is a 26-year-old female with recent admission to our Hospitalist Service for right upper extremity cellulitis as well as a right superficial hip History And Physical [address] [address] NAME: ANDIE TERRY : 88 STATUS : ADM IN [facility]#: [id number] AGE: 26 ADM/REG DATE : 09/24/16 MR#: [id number] REPORT SERV DATE: 09/24/16 DICTATED BY: JOHNATHAN MESA DATE: 09/24/16 REPORT STATUS : Draft TRANSCRIBED BY: ALONZO DATE: 09/24/16 abscess, status post incision and drainage with cultures growing methicillin-sensitive Staphylococcus aureus, discharged on Zyvox, who presents back with left upper extremity cellulitis that appears to have failed outpatient medical therapy. PROBLEM LIST: 1. Left upper extremity cellulitis that failed outpatient therapy. 2. Leukocytosis. 3. Thrombocytosis. 4. History of recurrent urinary tract infection. 5. Recurrent inguinal candidiasis. PLAN: 1. Left upper extremity cellulitis that has failed outpatient therapy. We will initially place the patient on IV vancomycin. Obtain blood as well as wound cultures. Lactic acid is pending. We will consult Infectious Disease who followed her during her previous hospitalization for recurrent cellulitis that has failed Zyvox therapy. At this time, there does not appear to be any evidence of localized skin abscess requiring incision and drainage. We will continue to monitor. 2. Leukocytosis likely secondary to left upper extremity cellulitis that has failed outpatient therapy. At the time of discharge, she still had leukocytosis in the same quantity. We will continue to monitor. Following up lactic acid level, blood cultures as well as urinalysis. 3. History of recurrent urinary tract infection. Following up urinalysis. 4. Cutaneous candidiasis. Place the patient on topical nystatin therapy. 5. DVT prophylaxis. Lovenox subcu. CODE STATUS: The patient wished to be full code. JCB/MODL Johnathan Mesa MD / [id number]
--- NOTE | ~2016-09-23 | DS ---
Discharge Summary [facility] [address] [place]. [address] NAME: ANDIE TERRY : 88 STATUS : DIS IN PAT#: [id number] AGE: 26 ADM/REG DATE : 09/24/16 MR#: [id number] REPORT SERV DATE: 09/27/16 DICTATED BY: THUAN FERGUSON DATE: 09/26/16 REPORT STATUS : Draft TRANSCRIBED BY: MODL DATE: 09/26/16 ADMISSION DATE: 09/24/2016 DISCHARGE DATE: 09/26/2016 REASON FOR ADMISSION: Left upper extremity cellulitis. HISTORY OF PRESENT ILLNESS: Please refer to Dr. Pj Orellana's history and physical dated 09/24/2016 for complete details regarding the patient's admission. The patient was admitted under the Hospitalist Service for management of her left upper extremity cellulitis. HOSPITAL COURSE: The patient had an uncomplicated hospital course. She was just discharged from a prolonged hospitalization from our service for a right hip MSSA abscess along with a right arm cellulitis. She was discharged with Zyvox. Dr. Estrada had been consulted during that hospitalization, and she said that she when she went home, she got her Zyvox filled and was doing better. Then, the day prior to admission, she started noticing some left upper extremity cellulitis and presented to the ER. On admission, she had some marked erythema on her left upper extremity with an indurated area close to her cubital fossa. She was started on vancomycin. Dr. Merritt was consulted. He had recommended switching over to Ancef for her cellulitis. As days went on, her cellulitis had markedly improved. I had obtain a left upper extremity ultrasound just to rule out a DVT, which was reported as an extensive superficial cephalic thrombosis in the left upper extremity at the junction of the subclavian vein, but no actual DVT. In the ER, she had an IV placed on the dorsum area of her right foot, which was then removed and replaced on her right arm. Even after removal of the IV on the dorsum of her foot, she had some erythema in that area that was tender. The patient is at risk for multiple thromboses and cellulitis and I have encouraged her to try to remain out of the hospital as she feared that we are doing her more harm every time she comes into the hospital. At any rate, we had a long discussion about anticoagulation given her history of a previous possible superficial thrombus and the fact that she has an extensive cephalic thrombosis at the junction of the deep vein, we decided to anticoagulate her. She had been on Lovenox in the hospital and we are switching her over to Xarelto, which is the preferred medication for her insurance. Her cellulitis is mostly resolved. The urine culture came back as greater than 50,[address] Andrade had changed her over from Ancef to Duricef, which she is tolerating it, which will also cover her Enterobacter. The patient is stable for discharge and I encouraged her to follow up with outpatient followup for any acute issues versus returning to the ER as again she is at risk for getting some sort of hospital complication. The patient will be discharged home in a stable condition. DISCHARGE DIAGNOSES: 1. Extensive left upper extremity superficial cephalic vein thrombosis. 2. Superficial thrombophlebitis. 3. Left upper extremity cellulitis. 4. Morbid obesity. 5. Nausea. 6. Enterobacter cloacae urinary tract infection. 7. Hepatic steatosis. Discharge Summary [address] [address] NAME: ANDIE TERRY : 88 STATUS : DIS IN PAT#: [id number] AGE: 26 ADM/REG DATE : 09/24/16 MR#: [id number] REPORT SERV DATE: 09/27/16 DICTATED BY: THUAN FERGUSON DATE: 09/26/16 REPORT STATUS : Draft TRANSCRIBED BY: ALONZO DATE: 09/26/16 8. Recent admission for methicillin-sensitive Staphylococcus aureus hip abscess. PROCEDURES: Include consultation with Dr. Merritt and Dr. Andrade, and a left upper extremity Doppler. DISCHARGE MEDICATIONS: Include Duricef 1000 mg twice a day for seven days, Neurontin 100 mg three times a day, Requip 0.5 mg at bedtime, Zoloft 150 mg at bedtime, Phenergan p.r.n. pain, Xarelto 15 mg twice a day for 21 days and then 20 mg once a day for three months. FOLLOWUP: The patient will follow up with [facility]. This is Dr. Thuan Ferguson spending over 30 minutes planning course of the care on Ms. Terry. LIZZ/ALONZO Thuan Ferguson MD / [id number] CC: Thuan Ferguson MD
--- NOTE | ~2016-09-23 | CN ---
Consultation Report [facility] [address] [place]. [address] NAME: ANDIE SOTOMAYOR : 88 STATUS : ADM IN [facility]#: [id number] AGE: 26 ADM/REG DATE : 09/24/16 MR#: [id number] REPORT SERV DATE: 09/24/16 DICTATED BY: JAI PEREZ DATE: 09/24/16 REPORT STATUS : Draft TRANSCRIBED BY: MODSanta DATE: 09/24/16 INFECTIOUS DISEASE CONSULT DATE OF CONSULTATION: 09/24/2016 REFERRING PHYSICIAN: Pj Orellana M.D. REASON FOR REFERRAL: Evaluation and treatment of multiple episodes of cellulitis. HISTORY OF PRESENT ILLNESS: The patient is a 26-year-old female with a history of morbid obesity, hepatic steatosis, and nephrolithiasis. She came in and was admitted first here on September 11 with pain, redness, and swelling in her right upper extremity. She also had a swollen painful area on her right hip. She developed fever. After arrival here, she was seen by Dr. Feliberto Jaramillo and was found to have a large abscess on the right hip. This was incised and drained and cultures of that grew methicillin-sensitive Staph aureus and that is steadily getting better. She had redness and swelling of her right upper extremity as well and that began to get better on antibiotics. She was first on vancomycin, Rocephin and vancomycin, Zosyn and finally, Ancef through September 16 to and then two days of vancomycin and then left on the on oral Zyvox. She developed new redness, swelling, and pain in her left upper extremity while on the Zyvox and comes back in for that now. The right arm is better and the right hip abscess looks good and no longer shows any signs of infection. She does not have fevers or chills at this time. She did not have an IV at the site of greatest redness, although there was one in the antecubital fossa. There is no fluctuance, no drainage, no breaks in the skin on the left side where the swelling and redness is now. No trauma or unusual environmental exposures. PAST MEDICAL HISTORY: Otherwise unremarkable. MEDICATIONS: She has been started back on Ancef. ALLERGIES: SHE HAS NO KNOWN ANTIMICROBIAL ALLERGIES. SOCIAL HISTORY: She is according to the face sheet, actually . She does not. PHYSICAL EXAMINATION: GENERAL: A nontoxic adult female, in no acute distress. She is alert and oriented x3. VITAL SIGNS: Her temperature here has been normal during this hospital stay. It is presently 97.2 with a pulse of 82, respirations 18, blood pressure 107/57. Weight is 115 kg. HEENT: Sclerae clear. No oropharyngeal lesions. NECK: Supple. LUNGS: Clear. HEART: Regular rate and rhythm. Consultation Report [address] [address] NAME: ANDIE SOTOMAYOR : 88 STATUS : ADM IN [facility]#: [id number] AGE: 26 ADM/REG DATE : 09/24/16 MR#: [id number] REPORT SERV DATE: 09/24/16 DICTATED BY: JAI PEREZ DATE: 09/24/16 REPORT STATUS : Draft TRANSCRIBED BY: ALONZO DATE: 09/24/16 ABDOMEN: Soft, nontender. Positive bowel sounds. Wound on the right hip is healing and clean with no signs of infection. EXTREMITIES: The right arm redness and swelling has resolved. On the left, she has redness, a cellulitis type pattern on the forearm extending up onto the upper inner arm and she states it is already better after first dose of vancomycin. There is some induration in the mid forearm, but no fluctuance, no drainage, no changes in the skin. LABORATORY DATA: White count 15.5, hematocrit 37.6, platelets 474. Normal differential. No white blood cell count. BUN and creatinine 12 and 0.87. IMPRESSION: Recurrent episodes of cellulitis I think probably due to colonization with methicillin-sensitive Staphylococcus aureus or perhaps strep. RECOMMENDATIONS: 1. We will change to Ancef. 2. Image the left arm. If it is not improving in the next 24 hours, finally I will follow the patient with you. I appreciate very much your consulting on this patient. ITA Jai Perez M.D. / [id number] / [id number] CC: Jagruti Webber M.D.
[~2016-09-23 23:50] MED LIST changes: +ZYVOXPO PO
[2016-09-24] MEDS ORDERED: NEUR100 PO (02:44)
[2016-09-24] MEDS ORDERED: REQUIP5 PO (02:45)
[2016-09-24] MEDS ORDERED: ZYVOXPO PO (02:45)
[2016-09-24] MEDS ORDERED: PR12.5 PO (02:45)
[2016-09-24] MEDS ORDERED: ZOL100 PO (02:47)
[2016-09-24] MEDS ORDERED: PERCOCET 7.5/321 TAB PO (02:50)
[2016-09-24 03:33] LABS: BASOPHILS 0.6 %; BASOPHILS ABSOLUTE 0.09 10/3/uL (0.0-0.16); EOSINOPHILS 2.3 %; EOSINOPHILS ABSOLUTE 0.35 10/3/uL (0.0-0.53); HEMATOCRIT 37.6 % (36.0-48.0); HEMOGLOBIN 12.3 g/dL (12.0-16.0); IMMATURE GRANULOCYTES 0.7 %; IMMATURE GRANULOCYTES ABSOLUTE 0.11 10/3/uL (0.0-0.11); LYMPHOCYTES 31.2 %; LYMPHOCYTES ABSOLUTE 4.73 10/3/uL (0.67-4.30); MEAN CORPUS HGB CONC 32.7 g/dL (32.0-36.0); MEAN CORPUSCULAR HEMOGLOB 29.8 pg (26.0-34.0); MEAN PLATELET VOLUME 9.6 fL (9.2-13.0); MONOCYTES 7.1 %; MONOCYTES ABSOLUTE 1.07 10/3/uL (0.21-1.20); NEUTROPHILS 58.1 %; PLATELET COUNT 474 10/3/uL (150-400); RBC DISTRIBUTION WIDTH 14.4 % (12.0-16.0); RED CELL COUNT 4.13 10/6/uL (4.0-5.6); WHITE BLOOD CELLS 15.2 10/3/uL (4.5-10.5)
[2016-09-24 03:34] LABS: MANUAL DIFF NO %
[2016-09-24 03:57] LABS: LACTATE 1.1 MMOL/L (0.3-2.4)
[2016-09-24 09:46] LABS: ASCORBIC ACID (UR NOT ORDER) NEG (NEG); BILIRUBIN, URINE NEGATIVE (NEG); KETONE, URINE NEGATIVE (NEG); LEUKOCYTE ESTERASE(NOT OR LARGE (NEG); WBC (NOT ORDERED) (RFLEX) 16 (0-5)
[2016-09-24 15:25] LABS: BASOPHILS 0.5 %; BASOPHILS ABSOLUTE 0.06 10/3/uL (0.0-0.16); BUN (BLOOD UREA NITROGEN) 12 MG/DL (6-23); CALCIUM, SERUM 9.6 MG/DL (8.5-10.4); CHLORIDE, SERUM 105 MMOL/L (96-112); CO2 (CARBON DIOXIDE) 24 MMOL/L (24-34); CREATININE 0.92 MG/DL (0.55-1.02); EOSINOPHILS 2.2 %; EOSINOPHILS ABSOLUTE 0.25 10/3/uL (0.0-0.53); GFR AFRICAN AMERICAN 99 ML/MIN (>=60); GFR NON AFRICAN AMERICAN 85 ML/MIN (>=60); GLUCOSE, SERUM 60 MG/DL (60-99); HEMATOCRIT 38.7 % (36.0-48.0); HEMOGLOBIN 12.7 g/dL (12.0-16.0); IMMATURE GRANULOCYTES 0.4 %; IMMATURE GRANULOCYTES ABSOLUTE 0.05 10/3/uL (0.0-0.11); LYMPHOCYTES 22.2 %; LYMPHOCYTES ABSOLUTE 2.49 10/3/uL (0.67-4.30); MEAN CORPUS HGB CONC 32.8 g/dL (32.0-36.0); MEAN CORPUSCULAR HEMOGLOB 29.8 pg (26.0-34.0); MEAN CORPUSCULAR VOLUME 90.8 fL (80-100); MEAN PLATELET VOLUME 9.5 fL (9.2-13.0); MONOCYTES 3.7 %; MONOCYTES ABSOLUTE 0.42 10/3/uL (0.21-1.20); NEUTROPHILS ABSOLUTE 7.96 10/3/uL (2.02-8.40); PLATELET COUNT 512 10/3/uL (150-400); POTASSIUM, SERUM 3.2 MMOL/L (3.5-5.3); RBC DISTRIBUTION WIDTH 14.5 % (12.0-16.0); RED CELL COUNT 4.26 10/6/uL (4.0-5.6); SODIUM, SERUM 140 MMOL/L (135-148); WHITE BLOOD CELLS 11.2 10/3/uL (4.5-10.5)
[2016-09-24 15:29] LABS: MANUAL DIFF NO %
[2016-09-26] MEDS ORDERED: DURICEF PO (11:14)
[2016-09-26] MEDS ORDERED: XARELTO20 MG PO (11:18)
[2016-09-26] MEDS ORDERED: XARELTO STARTER PACK (11:19)
[2016-10-02] MEDS ORDERED: XARELTO STARTER PACK (21:15)
[2016-10-02] MEDS ORDERED: ZOL100 PO (21:15)
[2016-10-02] MEDS ORDERED: PR12.5 PO (21:16)
[2016-10-02] MEDS ORDERED: REQUIP5 PO (21:16)
[2016-10-02] MEDS ORDERED: NEUR100 PO (21:16)
[2016-10-02] MEDS ORDERED: DURICEF PO (21:18)
[2016-10-02] MEDS ORDERED: NYSTATPOW TOP (21:19)
[2016-10-02] MEDS ORDERED: PERCOCET 7.5/321 TAB PO (21:19)
[2016-10-02] MEDS ORDERED: BEN25 PO (21:19)
[2016-10-05] MEDS ORDERED: PERCOCET 10/3251 TAB (09:39)
== END 2016-09-26 18:25 | disposition home health service (06) | DRG 300 ==
LOC: ER 23:50 → 7NO 09-24 03:33
PROVIDERS: Emergency Medicine; Internal Medicine
DX: I82.612 Acute embolism and thrombosis of superficial veins of left upper extremity (principal); L03.114 Cellulitis of left upper limb; E66.01 Morbid (severe) obesity due to excess calories; I80.9 Phlebitis and thrombophlebitis of unspecified site; Z87.442 Personal history of urinary calculi; Z90.49 Acquired absence of other specified parts of digestive tract; Z88.8 Allergy status to other drugs, medicaments and biological substances; Z87.440 Personal history of urinary (tract) infections; Z68.22 Body mass index [BMI] 22.0-22.9, adult
CPT/HCPCS: 80048; 81001; 83605; 85025; 87040; 87070; 87077; 87086; 87186; 87205; 93971; 99285; A9270-GY; J0690; J3370